=== PATIENT | male | born 1950 | race Two or more races ===

== ENCOUNTER → 2016-09-10 | Outpatient (CLI) | payer OTHER ==
[~2016-09-10] MED LIST: ASPI81TA85 PO; ATOR40TA75 PO; BETA115CR TOP; DIGO0.25 PO; DILT1TAB12 PO; DILT240C3 OR; ELIQ5TAB PO; GLIP5TAB8 PO; GLUC500T OR; LEVA1TAB2 PO; LISI20TA5 OR; LISI40TA OR; LISI40TAB PO; METF500T4 PO; NORV5TAB OR; PRAV40TA OR; TRAM50TA2 PO; TRIC145T19 OR; TYLE650T35 PO; VIAG100T PO
--- NOTE | 2016-09-10 11:25 | REP ---
Prostate sonography: History: PSA. Sonographic findings: Trans rectal prostate sonography demonstrates unremarkable seminal vesicles. Prostate gland is heterogeneously enlarged with calcifications and cystic changes noted. Glandular dimensions are measured at 5.4 x 3.5 x 5.5 cm with a calculated glandular volume of 53.4 ml. Transrectal sonographic guidance provided to Dr. Julian who performed trans rectal ultrasound guided needle biopsy procedure . Signed by Ernesto England MD 09/10/2016 11:17 A
== END ==
LOC: M SMT PRO 09:22
PROVIDERS: ATTEND Urology
DX: R97.20 Elevated prostate specific antigen [PSA] (principal)
CPT/HCPCS: 76872; 76942; G0416

== ENCOUNTER → 2016-09-17 | Outpatient (CLI) | payer OTHER ==
--- NOTE | 2016-09-17 14:37 | REP ---
CHEST, TWO VIEWS: COMPARISON: 12/31/2014 Two views of the chest are performed and demonstrate no evidence of infiltrate or other abnormal parenchymal opacity. The heart is normal in size. There is mild calcification of thoracic aorta. Mediastinal silhouette is unchanged. Left dual-lead pacemaker is again noted. There are mild degenerative changes of the spine. IMPRESSION: No change since prior study of 12/31/2014. No evidence of acute pulmonary disease. Signed by Joe Ramos MD 09/17/2016 08:19 P
[2016-09-17 18:48] LABS: ANION GAP 8 MEQ/L (8-16); BLOOD UREA NITROGEN 23 MG/DL (7-18); CALCIUM LEVEL 9.8 MG/DL (8.8-10.2); CARBON DIOXIDE LEVEL 28 MEQ/L (21-32); CHLORIDE LEVEL 103 MEQ/L (98-107); CREATININE FOR GFR 1.14 MG/DL (0.70-1.30); GLOMERULAR FILTRATION RATE > 60.0 (>49); GLUCOSE, FASTING 176 MG/DL (80-110); SODIUM LEVEL 139 MEQ/L (136-145)
[2016-09-17 18:51] LABS: POTASSIUM SERUM 5.3 MEQ/L (3.5-5.1)
== END ==
LOC: M SMT 13:53
PROVIDERS: ATTEND Urology
DX: C61 Malignant neoplasm of prostate (principal)

== ENCOUNTER → 2016-09-23 | Outpatient (CLI) | payer OTHER ==
[~2016-09-23] MED LIST changes: +ISOVUE-370 76% 100ML VIAL (Q9967) As Ordered ONE
--- NOTE | 2016-09-23 14:44 | REP ---
WHOLE BODY BONE SCAN: Following the intravenous administration of 21.9 mCi of technetium-99m MDP, patient's whole body is imaged in the anterior and posterior projections. Additional oblique images of the thoracic and pelvic regions are performed as well as lateral views of the calvarium, knees, and feet. There is no compelling scintigraphic evidence of osseous metastases. Metallic prosthesis is noted at the right knee. There is arthritic uptake in both feet, medial left knee joint and bilateral shoulders. Renal and bladder activity are seen. IMPRESSION: No compelling scintigraphic evidence of osseous metastases. Signed by Joe Ramos MD 09/23/2016 05:58 P
--- NOTE | 2016-09-24 01:58 | REP ---
Clinical: Prostate cancer . Comparison: 09/17/2016 . Technique: PA and lateral. Findings: The mediastinum and cardiac silhouette are stable. Pacemaker again identified. The lung pickett are clear and without acute consolidation, effusion, or pneumothorax. The skeletal structures are intact and normal. Impression: 1. No acute cardiopulmonary process. Signed by John Mcintyre MD 09/24/2016 01:49 A
--- NOTE | 2016-09-24 03:01 | REP ---
Clinical: Prostate cancer. Technique: Axial contrast enhanced images from the lung bases to the pubic symphysis using 100 ml Isovue 370 intravenous contrast material with precontrast and delayed images of the abdomen as well as coronal and sagittal re-formations. Findings: Lung bases demonstrate mild chronic interstitial changes as well as 3 cm nonspecific density in the medial right middle lobe. Visualized heart and pericardium normal. Liver, pancreas, gallbladder, and right adrenal gland are normal. Spleen demonstrates parenchymal calcifications and subcentimeter cyst suggesting prior granulomas disease. Kidneys demonstrate mild chronic-appearing perinephric stranding, 1 mm nonobstructing left renal calculus and bilateral cysts measuring up to 4 cm in the left kidney and 3.5 cm in the right kidney. 1.1 cm fat containing angiolipoma in the left adrenal gland. The enteric system is without obstruction or acute inflammatory process. Sigmoid diverticulosis noted without acute diverticulitis. Pelvis demonstrates normal bladder prostate gland is mildly heterogeneous and measures approximately 5.4 cm maximal diameter. No pelvic fluid or ascites. No retroperitoneal or intraperitoneal adenopathy. No mass lesion. Atherosclerotic changes of the aorta and vasculature noted without aneurysm. Musculoskeletal structures demonstrate age-related degenerative changes without focal osseous abnormality. Impression: 1. 3 cm soft tissue density in the medial right middle lobe may warrant chest CT for further investigation. 2. Bilateral renal cysts and 1 mm nonobstructing left renal calculus. 3. Sigmoid diverticulosis without acute diverticulitis. 4. Heterogeneous prostate gland measuring 5.4 cm maximal diameter without associated periprostatic adenopathy. 5. No ascites, adenopathy, mass lesion, or acute abdominopelvic pathology appreciated. Signed by John Mcintyre MD 09/24/2016 02:53 A
== END ==
LOC: M RAD 09:48
PROVIDERS: ATTEND Urology
DX: C61 Malignant neoplasm of prostate (principal); R91.8 Other nonspecific abnormal finding of lung field; N28.1 Cyst of kidney, acquired; N20.0 Calculus of kidney; K57.30 Diverticulosis of large intestine without perforation or abscess without bleeding
CPT/HCPCS: 71020; 74178; Q9967

== ENCOUNTER → 2016-10-15 | Outpatient (CLI) | payer OTHER ==
[2016-10-15 12:47] LABS: INR 1.07
[2016-10-15 12:48] LABS: MEAN CORPUSCULAR HEMOGLOBIN 30.9 pg (27.0-33.0); MEAN CORPUSCULAR HGB CONC 34.6 g/dl (32.0-36.5); MEAN CORPUSCULAR VOLUME 89.5 fl (80.0-96.0); RED CELL DISTRIBUTION WIDTH 13.2 % (11.5-14.5); WHITE BLOOD COUNT 8.9 K/mm3 (4.0-10.0)
[2016-10-15 13:05] LABS: ANION GAP 6 MEQ/L (8-16); BLOOD UREA NITROGEN 16 MG/DL (7-18); CALCIUM LEVEL 8.9 MG/DL (8.8-10.2); CARBON DIOXIDE LEVEL 30 MEQ/L (21-32); CHLORIDE LEVEL 107 MEQ/L (98-107); GLOMERULAR FILTRATION RATE > 60.0 (>49); GLUCOSE, FASTING 109 MG/DL (80-110); POTASSIUM SERUM 4.6 MEQ/L (3.5-5.1); SODIUM LEVEL 143 MEQ/L (136-145)
--- NOTE | 2016-10-15 13:37 | REP ---
CT chest with IV contrast: History: Prostate cancer. Comparison chest x-ray September 23, 2016. CT contrast dose: 75 mL of intravenous Isovue [address] findings: A bipolar pacemaker remains in the right heart via the left side. There is no evidence of pleural or pericardial effusion. No hilar or mediastinal mass or adenopathy is observed. There are granulomatous calcifications scattered throughout the spleen. There are granulomatous lymph node residuals in the left hilus and precarinal lymph nodes. No adrenal lesion is seen on either side. There is an intrarenal calculus in the upper pole of the left kidney measuring 3 mm in greatest diameter. There is a low-density area consistent with a cyst in the left mid kidney partially seen at the bottom most slice in the imaging field of view. The visualized upper abdominal structures are otherwise unremarkable. On lung window settings, there is no evidence of pulmonary nodule mass or infiltrate. Bone window settings show no sclerotic or lucent bone destructive lesion. Impression: 1. Pacemaker in place. 2. Calcific granulomatous residuals. 3. Intrarenal nephrolithiasis upper pole left kidney. 4. Probable left mid renal cyst. 5. Otherwise negative contrast enhanced chest CT. Signed by Ernesto England MD 10/15/2016 04:41 P
--- NOTE | 2016-10-16 11:57 | ECGEPIP ---
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
== END ==
LOC: M RAD 10:43
PROVIDERS: ATTEND Urology
DX: C61 Malignant neoplasm of prostate (principal); N20.0 Calculus of kidney
CPT/HCPCS: 36415; 71260; 80048; 85027; 85610; 93005; Q9967

== ENCOUNTER 2016-11-02 07:30 | Inpatient (IN) | payer OTHER, MEDICARE ==
--- NOTE | 2016-10-28 11:28 | HPE ---
DATE OF ADMISSION: 11/02/2016 He is a 66-year-old male patient with [id number] prostate cancer U[place] 8 (3 + 5) with a PSA of 8.26. He would like to undergo surgery. He has had staging with a CT of the abdomen and pelvis, which was negative along with a whole body bone scan also negative. CT of abdomen and pelvis did show a 3 cm lesion in the right lung of unknown etiology and he is scheduled to have a CT of the chest. CURRENT MEDICATIONS: - tramadol HCl 50 mg one tablet as needed every 6 hours - glipizide 5 mg one tablet orally - atorvastatin calcium 40 mg one tablet orally - Eliquis 5 mg one tablet orally - betamethasone valerate 0.801% cream one application to affected area as needed - metformin HCl extended release 500 mg tablet once a day - Viagra 100 mg one tablet as needed once a day - diltiazem HCL 60 one tablet before meals and at bedtime PAST MEDICAL HISTORY: Diabetes. Elevated cholesterol. Hypertension. Prostate cancer. PAST SURGICAL HISTORY: Pacemaker. Total knee replacement of the right knee. Hernia repair. Chest biopsy. SOCIAL HISTORY: He is a smoker. ALLERGIES: No known drug allergies. REVIEW OF SYSTEMS: We have reviewed the 12 review of systems and there is no other symptomatology other than the history of present illness. Vital signs: Weight 265 pounds, height 71 inches. Vital signs otherwise stable. Physical exam: Alert, oriented times three. Skin is clear. HEENT: Unremarkable. Lungs: Clear to auscultate, respirations easy. Heart: Regular rate and rhythm. No murmurs. Abdomen is soft, nondistended. Positive bowel signs. Extremities: No swelling, no edema. ASSESSMENT: Prostate cancer. 66-year-old male patient with a [place] score of 8 and a PSA of 8.26. He would like to undergo a robotic-assisted radical prostatectomy plus bilateral pelvic lymph node dissections. We have explained to him about the different complications related to the surgery which are not limited to the following: Pain, infection, sepsis, bowel injury, rectal injury, bladder injury, rectoceles, hematuria, blood loss, incontinence and impotence. The patient is aware of this and has signed consent. We will order a CT of the chest with IV contrast to rule out a secondary malignancy. He will also need a medical clearance and preop lab work has been ordered.
[~2016-11-02] VITALS: Ht 175.3 cm; Wt 120.2 kg
[~2016-11-02 07:30] MED LIST changes: -ASPI81TA85 PO; -DIGO0.25 PO; -ISOVUE-370 76% 100ML VIAL (Q9967) As Ordered ONE; -LEVA1TAB2 PO; -LISI40TAB PO; -TYLE650T35 PO
[2016-11-02] MEDS ORDERED: LR 1,000 ML IV ONE (09:15)
[2016-11-02] MEDS ORDERED: ASPI81TA85 PO (10:09)
[2016-11-02] MEDS ORDERED: DIGO0.25 PO (10:09)
[2016-11-02] MEDS ORDERED: LISI40TAB PO (10:09)
[2016-11-02] MEDS ORDERED: HYDROmorphone HCL 2 MG/ML 1ML VIAL (J1170) As Ordered ONE (13:40)
[2016-11-02] MEDS ORDERED: dexameTHASONE 4 MG/ML 1ML VIAL (J1100) As Ordered ONE (13:40)
[2016-11-02] MEDS ORDERED: fentaNYL 100 MCG/2 ML INJECTION (J3010) As Ordered ONE (13:40)
[2016-11-02] MEDS ORDERED: ONDANSETRON 4MG/2ML VIAL (J2405) As Ordered ONE (13:41)
[2016-11-02] MEDS ORDERED: LIDOCAINE 2% INJ 100 MG/5 ML SDV (FOR ANES.) As Ordered ONE (13:41)
[2016-11-02] MEDS ORDERED: MIDAZOLAM INJ 2 MG/2 ML VIAL (J2250) As Ordered ONE (13:41)
[2016-11-02] MEDS ORDERED: ROCURONIUM BROMIDE 50 MG/5 ML VIAL/SYRINGE As Ordered ONE ×2 (13:41→14:31)
[2016-11-02] MEDS ORDERED: PROPOFOL 200 MG/20 ML VIAL As Ordered ONE (13:41)
[2016-11-02] MEDS ORDERED: PHENYLephrine HCL 500 MCG/5 ML (100MCG/ML) SYRINGE (J2370) As Ordered ONE (14:08)
[2016-11-02] MEDS ORDERED: NEOSTIGMINE 1MG/ML 5 ML SYRINGE (J2710) As Ordered ONE (14:10)
[2016-11-02] MEDS ORDERED: GLYCOPYRROLATE INJ 0.2 MG/ML 2 ML VIAL As Ordered ONE (14:10)
[2016-11-02] MEDS ORDERED: MORPHINE 2 MG/ML 1ML SYRINGE IV PRN (17:45)
[2016-11-02] MEDS ORDERED: oxyCODONE 5MG TAB PO PRN (17:45)
[2016-11-02] MEDS ORDERED: METOCLOPRAMIDE INJ 10MG/2ML VIAL (J2765) IV PRN (17:45)
[2016-11-02] MEDS ORDERED: PERCOCET 5MG/325MG TAB PO PRN (17:45)
[2016-11-02] MEDS ORDERED: MORPHINE 4 MG/ML 1ML SYRINGE IV PRN (17:45)
[2016-11-02] MEDS ORDERED: ONDANSETRON 4MG/2ML VIAL (J2405) IV PRN ×2 (17:45)
[2016-11-02] MEDS ORDERED: fentaNYL 100 MCG/2 ML INJECTION (J3010) IV PRN (17:45)
[2016-11-02] MEDS ORDERED: LR 1,000 ML IV SCH (17:45)
[2016-11-02 17:53] LABS: MEAN CORPUSCULAR HEMOGLOBIN 31.6 pg (27.0-33.0); MEAN CORPUSCULAR HGB CONC 34.6 g/dl (32.0-36.5); MEAN CORPUSCULAR VOLUME 91.2 fl (80.0-96.0); RED CELL DISTRIBUTION WIDTH 13.2 % (11.5-14.5); WHITE BLOOD COUNT 15.1 K/mm3 (4.0-10.0)
[2016-11-02 18:10] LABS: ANION GAP 6 MEQ/L (8-16); BLOOD UREA NITROGEN 17 MG/DL (7-18); CALCIUM LEVEL 8.7 MG/DL (8.8-10.2); CARBON DIOXIDE LEVEL 29 MEQ/L (21-32); CHLORIDE LEVEL 107 MEQ/L (98-107); CREATININE FOR GFR 1.22 MG/DL (0.70-1.30); GLOMERULAR FILTRATION RATE > 60.0 (>49); GLUCOSE, FASTING 219 MG/DL (80-110); POTASSIUM SERUM 4.9 MEQ/L (3.5-5.1); SODIUM LEVEL 142 MEQ/L (136-145)
[2016-11-02] MEDS: KCL 20MEQ IN D5/0.45NS 1000ML 1,000 ML IV SCH (19:15)
[2016-11-02] MEDS: CIPROFLOXACIN 500 MG TAB PO SCH (19:16)
[2016-11-02] MEDS: KETOROLAC 30 MG/ML VIAL (J1885) IV SCH (19:16)
[2016-11-02 19:30] VITALS: BP 140/60
[2016-11-02 20:00] VITALS: BP 158/62
[2016-11-02] MEDS ORDERED: PANTOPRAZOLE 40MG INJ (PROTONIX) (C9113) IV SCH (20:00)
[2016-11-02] MEDS: SIMETHICONE 80 MG CHEW TAB PO SCH (20:23)
[2016-11-02 21:00] VITALS: BP 144/54
[2016-11-02 22:00] VITALS: BP 128/80
[2016-11-02 23:00] VITALS: BP 130/78
[2016-11-02] MEDS: ACETAMINOPHEN 650MG ER TAB (TYLENOL ARTHRITIS) PO SCH (23:10)
[2016-11-03] MEDS: KCL 20MEQ IN D5/0.45NS 1000ML 1,000 ML IV SCH (02:46)
[2016-11-03] MEDS: KETOROLAC 30 MG/ML VIAL (J1885) IV SCH ×2 (02:47→09:31)
[2016-11-03 03:00] VITALS: BP 142/58
[2016-11-03 06:00] VITALS: BP 138/72
[2016-11-03] MEDS: ACETAMINOPHEN 650MG ER TAB (TYLENOL ARTHRITIS) PO SCH ×2 (06:25→15:29)
[2016-11-03] MEDS: CIPROFLOXACIN 500 MG TAB PO SCH ×2 (06:25→17:52)
[2016-11-03 07:18] LABS: MEAN CORPUSCULAR HEMOGLOBIN 30.6 pg (27.0-33.0); MEAN CORPUSCULAR HGB CONC 33.5 g/dl (32.0-36.5); MEAN CORPUSCULAR VOLUME 91.1 fl (80.0-96.0); RED CELL DISTRIBUTION WIDTH 13.1 % (11.5-14.5); WHITE BLOOD COUNT 14.1 K/mm3 (4.0-10.0)
[2016-11-03 07:42] LABS: ANION GAP 12 MEQ/L (8-16); BLOOD UREA NITROGEN 21 MG/DL (7-18); CALCIUM LEVEL 8.1 MG/DL (8.8-10.2); CARBON DIOXIDE LEVEL 24 MEQ/L (21-32); CHLORIDE LEVEL 105 MEQ/L (98-107); GLOMERULAR FILTRATION RATE > 60.0 (>49); GLUCOSE, FASTING 228 MG/DL (80-110); SODIUM LEVEL 141 MEQ/L (136-145)
[2016-11-03 07:44] LABS: POTASSIUM SERUM 5.3 MEQ/L (3.5-5.1)
[2016-11-03] MEDS ORDERED: metFORMIN XR 500MG TAB *GLUCOPHAGE XR PO SCH (09:00)
[2016-11-03] MEDS ORDERED: DIGOXIN 0.25 MG TAB PO SCH (09:00)
[2016-11-03] MEDS: SIMETHICONE 80 MG CHEW TAB PO SCH ×2 (09:31→15:29)
[2016-11-03 10:00] VITALS: BP 144/66
--- NOTE | 2016-11-03 10:12 | RO ---
DATE OF PROCEDURE: 11/02/2016 PREOPERATIVE DIAGNOSIS: Prostate cancer. POSTOPERATIVE DIAGNOSIS: Prostate cancer. SURGERY PERFORMED: Robotic assisted radical prostatectomy plus bilateral pelvic lymph node dissection. SURGEON: Aleixs Julian MD DIRECTOR OF [employer]: HEATHER Cruz ANESTHESIA: General. COMPLICATIONS: None. ESTIMATED BLOOD LOSS: 100 mL. HISTORY OF PRESENT ILLNESS: 66-year-old male patient with a clinical stage [id number] prostate cancer, [place] 8. The patient has consented for a robotic assisted radical prostatectomy plus bilateral pelvic lymph node dissection. DESCRIPTION OF PROCEDURE: With the patient under general anesthesia in supine modified low lithotomy position, after prepping and draping the area of concern which included the entire genitalia and abdomen, we started by introducing a #16 Palau[place] Bhatia catheter and inflated the balloon to 10 mL. He had an orogastric tube also placed. We then proceeded to place the patient in a steep Trendelenburg position and did an incision in the midline infraumbilically for about 2 cm. Through this incision we opened the Retzius space and placed a balloon space maker. We dilated the Retzius space and then placed a balloon trocar and inflated the balloon trocar to 40 mL. We then proceeded to insufflate the Retzius space with a maximum pressure of 12 at high flow. Under direct vision with a handheld robotic camera, we placed the other trocars in a fan shaped manner, two 8 mm metallic trocars on the right side by each by 8 cm, and two other trocars on he left side, one 12 mm VersaStep in the midclavicular line and anterior clavicular line in a fan shaped manner, an 8 mm metallic trocar. We then proceeded to dock the robot. On the left arm we used monopolar scissors, on the right arm we used bipolar PK and a ProGrasp. We then proceeded to actively dissect the periprostatic fat and uncover the prostate from the periprostatic fat. We then opened the endopelvic fascia bilaterally from base to apex, cut the puboprostatic ligaments and ligated the dorsal vein complex with a CT-1 needle and #0 Vicryl times two. We then proceeded to open the anterior bladder neck with monopolar scissors, deflated the balloon and grabbed the Bhatia catheter and pulling into traction with the third arm, pulling the prostate into traction and the bladder neck into traction. We then cut the posterior bladder neck and the posterior detrusor muscle and dissected vas deferens, cut both vas deferens, dissected the seminal vesicles and ligated the seminal vesicle arteries. We then proceeded to cut the posterior Denonvilliers fascia with monopolar scissors from base to apex, the rectum from base to apex of the prostate. We then ligated the prostatic pedicles with extra large Hem-o-Loks times three on the left side, times four on the left side and on the right side and then dissecting with monopolar scissors the prostate away from the rectum from base to apex. Once the prostate was attached to the dorsal vein complex on the urethra, we actively cut the dorsal vein complex and then cut the urethra and placed the prostate into a 10 mm Endo Catch bag. We then proceeded to repair the posterior Denonvilliers fascia with a V-Loc #3-0 in a running fashion and then proceeded to actively do our urethral vesical anastomosis with a Quill stitch #2-0 barbed suture absorbable starting at the bladder neck, outside in and inside out in the urethra running it across 360 degrees. Prior to this, we closed the bladder with #2-0 Monocryl stitches on the right and the left of the bladder neck to actively reduce the size of the bladder neck. We then proceeded to actively pass a #20 Palauan Bhatia catheter into the bladder and inflated the balloon to 20 mL and tied our knots of the Quill stitch. We then proceeded to do our pelvic lymph node dissections on the left and the right side. The limits of dissection were inferiorly the lacunar ligament medially, the bladder posteriorly, the sidewall superiorly, the bifurcation of the hypogastric vessels laterally, the external iliac arteries. We took out the obturator lymph nodes. We took out the obturator lymph nodes, hypogastric lymph nodes and external iliac artery lymph nodes. We sent them as separate specimens in a 10 mm Endo Catch bag, left pelvic lymph node dissection and right pelvic lymph node dissection. We ligated the lymphatics with Hem-o-Loks and bipolar PK. We then proceeded to undock the thirst arm and placed a 15 round ERIK drain into the pelvis and placed it to bulb suction. We then undocked the robot, took all the instruments out and took the optic out and took all the trocars out, and took all the specimens through the midline incision. Left pelvic lymph node dissection and right pelvic lymph node dissection and prostate and seminal vesicles were sent in separate specimen containers for permanent pathology analysis. We then closed the anter rectus fascia of the rectus muscle with a #2-0 UR6 in running fashion Vicryl and then closed the skin with #4-0 Monocryl subcuticular stitches. We placed Mastisol, Steri-Strips, Telfa and Tegaderm. We suture ligated the ERIK drain with nylon #3-0. PLAN: The patient will be in the hospital for one day. Once he is tolerating a regular diet and pain is under control, he will be discharged home with followup at [facility] for a voiding trial. There were no complications during surgery. Estimated blood loss was 100 mL.
[2016-11-03] MEDS: glipiZIDE (GLUCOTROL) 5 MG TAB PO SCH ×2 (10:23→17:52)
[2016-11-03 14:00] VITALS: BP 149/62
[2016-11-03] MEDS ORDERED: TYLE650T35 PO (17:12)
[2016-11-03] MEDS ORDERED: LEVA1TAB2 PO (17:12)
--- NOTE | 2016-11-03 20:49 | DSES ---
DATE OF ADMISSION: 11/02/2016 DATE OF DISCHARGE: 11/03/2016 ADMISSION DIAGNOSIS: Prostate cancer. DISCHARGE DIAGNOSIS: Prostate cancer. SURGERY PERFORMED: Robotic-assisted radical prostatectomy plus bilateral pelvic lymph node dissection. ADMITTING SURGEON: Alexis Julian MD DISCHARGE SURGEON: Alexis Julian MD HISTORY OF PRESENT ILLNESS: 66-year-old male patient with clinical stage [id number] prostate cancer, Uz[place] 8. The patient has consented for a robotic-assisted radical prostatectomy plus bilateral pelvic lymph node dissection. He has morbid obesity, and he has consented for the procedure. For this reason, on 11/02/2016, we performed the procedure. After this, he was admitted to the hospital. HOSPITALIZATION COURSE: The patient did very well. By postoperative day #1, he was tolerating regular diet, he was passing gas, pain was stable with oral pain medication, Bhatia catheter was running clear urine, the Ricardo-Juarez (ERIK) output was only 40 mL per shift. For this reason, we discontinued the ERIK and he will go home with the following indications: Hbatia catheter to gravity, regular diet, no blood thinners, no heavy weightlifting above 20 pounds, may shower in 3 days, no sit bath. He is to take Levaquin 500 mg one tablet by mouth daily for 10 days. Followup at [facility] in 10 days for a voiding trial. He will take also Tylenol as needed for pain. He cannot start his blood thinners for 2 weeks. There were no complications during surgery. Edited: [facility] 11/04/2016 0249
[2016-11-03] MEDS ORDERED: LISINOPRIL 40 MG TAB PO SCH (21:00)
== END 2016-11-03 18:20 | disposition home or self-care (01) | DRG 708 ==
LOC: M OR 09:01 → M MS5PR 18:23
PROVIDERS: ADMIT Urology; ATTEND Urology
PROC: 07BC4ZX Excision of Pelvis Lymphatic, Percutaneous Endoscopic Approach, Diagnostic (ICD-10-PCS; 2016-11-02)
PROC: 8E0W4CZ Robotic Assisted Procedure of Trunk Region, Percutaneous Endoscopic Approach (ICD-10-PCS; 2016-11-02)
PROC: 0VT04ZZ Resection of Prostate, Percutaneous Endoscopic Approach (ICD-10-PCS; principal; 2016-11-02 11:40)
DX: C61 Malignant neoplasm of prostate (principal); E11.21 Type 2 diabetes mellitus with diabetic nephropathy; E78.00 Pure hypercholesterolemia, unspecified; I10 Essential (primary) hypertension; I48.2 Chronic atrial fibrillation; G47.33 Obstructive sleep apnea (adult) (pediatric); E66.09 Other obesity due to excess calories; Z95.0 Presence of cardiac pacemaker; Z96.651 Presence of right artificial knee joint; Z87.891 Personal history of nicotine dependence; Z79.01 Long term (current) use of anticoagulants; Z79.899 Other long term (current) drug therapy; Z68.37 Body mass index [BMI] 37.0-37.9, adult; Z79.84 Long term (current) use of oral hypoglycemic drugs

== ENCOUNTER → 2016-12-17 | Outpatient (CLI) | payer OTHER, MEDICARE ==
[~2016-12-17] MED LIST changes: +ASPI81TA85 PO; +DIGO0.25 PO; +LEVA1TAB2 PO; +LISI40TAB PO; +TYLE650T35 PO
== END ==
LOC: M SMT 08:30
PROVIDERS: ATTEND Nurse Practitioner Women's Health
DX: C61 Malignant neoplasm of prostate (principal)

== ENCOUNTER → 2017-03-24 | Outpatient (CLI) | payer OTHER ==
[2017-03-24 14:06] LABS: PROSTATIC SPECIFIC AG MONITOR < 0.01 NG/ML (< 4.0)
== END ==
LOC: M SMT 10:11
DX: C61 Malignant neoplasm of prostate (principal)
CPT/HCPCS: 84153

== ENCOUNTER → 2017-03-30 | Outpatient (REF) | payer OTHER ==
[2017-03-30 13:45] LABS: APPEARANCE, URINE CLEAR (CLEAR); BACTERIA, URINE AUTO NEGATIVE (NEGATIVE); BILIRUBIN, URINE AUTO NEGATIVE (NEGATIVE); BLOOD, URINE BLOOD NEGATIVE (NEGATIVE); COLOR, URINE YELLOW (YELLOW); GLUCOSE, URINE (UA) AUTO NEGATIVE (NEGATIVE); KETONE, URINE AUTO NEGATIVE (NEGATIVE); LEUKOCYTE ESTERASE, URINE AUTO NEGATIVE (NEGATIVE); MUCUS, URINE SMALL (NEGATIVE); NITRITE, URINE AUTO NEGATIVE (NEGATIVE); PROTEIN, URINE AUTO 2+ mg/dL (NEGATIVE); RBC, URINE AUTO 0 /HPF (0-3); SPECIFIC GRAVITY URINE AUTO 1.017 (1.002-1.035); SQUAMOUS EPITHELIAL CELL UR AU 0 /HPF (0-6); UROBILINOGEN, URINE AUTO 0.2 mg/dL (0.0-2.0); WBC, URINE AUTO 0 /HPF (0-3)
== END ==
LOC: M SMT 13:13
DX: Z85.46 Personal history of malignant neoplasm of prostate (principal)

== ENCOUNTER → 2017-07-04 | Outpatient (CLI) | payer OTHER ==
[2017-07-04 14:26] LABS: PROSTATIC SPECIFIC AG MONITOR < 0.01 NG/ML (< 4.0)
== END ==
LOC: M SMT 10:36
DX: Z85.46 Personal history of malignant neoplasm of prostate (principal)
CPT/HCPCS: 84153

== ENCOUNTER → 2017-10-06 | Outpatient (CLI) | payer OTHER ==
[2017-10-06 15:34] LABS: PROSTATIC SPECIFIC AG MONITOR < 0.01 NG/ML (< 4.0)
== END ==
LOC: M SMT 09:29
DX: C61 Malignant neoplasm of prostate (principal)
CPT/HCPCS: 84153

== ENCOUNTER → 2018-01-05 | Outpatient (CLI) | payer OTHER ==
[2018-01-05 18:21] LABS: PROSTATIC SPECIFIC AG MONITOR < 0.0 NG/ML (< 4.0)
== END ==
LOC: M SMT 11:14
DX: Z85.46 Personal history of malignant neoplasm of prostate (principal)
CPT/HCPCS: 84153

== ENCOUNTER 2018-01-11 11:27 | Day surgery (SDC) | payer OTHER ==
[2018-01-11] MEDS: NS 1,000 ML IV (11:45)
[2018-01-11] MEDS ORDERED: PROPOFOL 200 MG/20 ML VIAL As Ordered ×2 (11:53→12:20)
[2018-01-11] MEDS ORDERED: LIDOCAINE 2% INJ 100 MG/5 ML SDV (FOR ANES.) As Ordered (12:16)
== END 2018-01-11 13:35 | disposition home or self-care (01) ==
LOC: M OPP 11:27
DX: Z86.010 Personal history of colon polyps (principal); K64.0 First degree hemorrhoids; K57.30 Diverticulosis of large intestine without perforation or abscess without bleeding; D12.2 Benign neoplasm of ascending colon
CPT/HCPCS: 45385

== ENCOUNTER → 2018-04-04 | Outpatient (CLI) | payer OTHER ==
[~2018-04-04] MED LIST changes: +ATEN25TA PO; +LISI40TA PO; -LISI40TAB PO
== END ==
LOC: M SMT 10:36
PROVIDERS: ATTEND Nurse Practitioner Women's Health
DX: Z85.46 Personal history of malignant neoplasm of prostate (principal)

== ENCOUNTER → 2019-03-14 | Outpatient (REF) | payer OTHER ==
[~2019-03-14] MED LIST changes: +DIGO0.253 PO; +METF-791 PO; -METF500T4 PO
== END ==
LOC: M LAB REF 17:40
PROVIDERS: ATTEND Nurse Practitioner Adult Health
DX: M10.071 Idiopathic gout, right ankle and foot (principal)

== ENCOUNTER → 2019-10-18 | Outpatient (CLI) | payer OTHER ==
[~2019-10-18] MED LIST changes: +ACET650T61 PO; -ASPI81TA85 PO; +ASPI81TA86 PO; -METF-791 PO; +METF-838 PO; -TYLE650T35 PO
[2019-10-20 08:09] LABS: PSA TOTAL <0.1 ng/mL (0.0-4.0)
== END ==
LOC: M PLALAB 11:17
PROVIDERS: ATTEND Nurse Practitioner Family
DX: R97.20 Elevated prostate specific antigen [PSA] (principal)

== ENCOUNTER → 2019-10-18 | Outpatient (CLI) | payer OTHER ==
[~2019-10-18] MED LIST changes: +ISOVUE-370 76% 100ML VIAL As Ordered ONE
--- NOTE | 2019-10-25 17:34 | REP ---
CT OF THE ABDOMEN AND PELVIS WITHOUT AND WITH IV CONTRAST, MULTIPHASE IMAGING AFTER IV CONTRAST, CT UROGRAM INDICATION: Studies performed for hematuria. COMPARISON: 09/23/2016. HISTORY: Patient has a history of prostate carcinoma. FINDINGS: The visualized lower lung pickett are unremarkable. The hepatic parenchyma is homogeneous on all phases of the study. There are tiny gallbladder calculi along the dependent wall. The gallbladder is otherwise unremarkable. The pancreas is unremarkable. There are small splenic calcified granulomas, these are unchanged. The spleen is otherwise unremarkable. The adrenals are unremarkable. There is a right renal lower pole, sharply circumscribed cyst without calcification or septation measuring 4.2 cm in diameter, not significantly changed. This is a Bosniak type 1 cyst. There is a left renal cortical cyst that is sharply marginated without calcification or septation, measuring 4.2 cm in diameter. This is not significantly changed. This is a Bosniac type I cyst. There is a small hyperdensity at the mid-pole laterally in the right renal cortex on the unenhanced images, measuring up to 7 mm, not significantly changed. This is likely a tiny hyperdense cyst. There are small calcifications in the left renal hilus, likely vascular atheroma. There is a tiny, nonobstructive, left renal calculus measuring 3 mm in an upper pole calyx, unchanged. There are no solid renal masses. There is no hydronephrosis. On the CT urogram, the ureters are adequately demonstrated. There is no hydroureter. There are no filling defects. On the coronal images, there is a tiny soft tissue defect in the dome of the bladder measuring 9 mm in an upper pole , possibly a bladder wall polyp that can be seen posterolaterally in the bladder on the axial image 126 of series 401. On the comparison study, the prostate was enlarged. The prostate is not visualized on the current study. There are tiny densities posterolateral to the bladder base bilaterally, possibly surgical clips. There is no pelvic or retroperitoneal adenopathy. There are no lytic, blastic, or destructive skeletal changes. IMPRESSION: There are bilateral Bosniak type 1 renal cysts. Hyperdense cyst in the right kidney. There are bilateral renal calculi, as described.. There is no hydronephrosis or perinephric stranding. There is no hydroureter. There is a probable 9 mm polyp in the bladder dome. Previously, the prostate was enlarged. No prostatic tissue is identified on the current study. There are tiny densities at the lateral margins of the prostate bed, possibly surgical clips. There is no abdominal, retroperitoneal, or pelvic adenopathy. There are no lytic, blastic, or destructive skeletal changes. MTDD
== END ==
LOC: M RAD 09:45
PROVIDERS: ATTEND Internal Medicine Nephrology
DX: R31.9 Hematuria, unspecified (principal); N20.0 Calculus of kidney; N28.1 Cyst of kidney, acquired
CPT/HCPCS: 74178; Q9967

== ENCOUNTER → 2019-10-24 | Outpatient (REF) | payer OTHER ==
[~2019-10-24] MED LIST changes: -ISOVUE-370 76% 100ML VIAL As Ordered ONE
[2019-10-24 13:59] LABS: APPEARANCE, URINE HAZY (CLEAR); BACTERIA, URINE AUTO NEGATIVE (NEGATIVE); BILIRUBIN, URINE AUTO NEGATIVE (NEGATIVE); BLOOD, URINE BLOOD 3+ (NEGATIVE); COLOR, URINE YELLOW (YELLOW); GLUCOSE, URINE (UA) AUTO NEGATIVE (NEGATIVE); KETONE, URINE AUTO NEGATIVE (NEGATIVE); LEUKOCYTE ESTERASE, URINE AUTO NEGATIVE (NEGATIVE); NITRITE, URINE AUTO NEGATIVE (NEGATIVE); PROTEIN, URINE AUTO 2+ mg/dL (NEGATIVE); RBC, URINE AUTO TNTC /HPF (0-3); SPECIFIC GRAVITY URINE AUTO 1.012 (1.002-1.035); SQUAMOUS EPITHELIAL CELL UR AU 0 /HPF (0-6); UROBILINOGEN, URINE AUTO 0.2 mg/dL (0.0-2.0); WBC, URINE AUTO 5 /HPF (0-3)
== END ==
LOC: M LAB REF 12:51
PROVIDERS: ATTEND Nurse Practitioner Women's Health
DX: R30.0 Dysuria (principal)

== ENCOUNTER → 2020-05-14 | Outpatient (REF) | payer OTHER ==
[~2020-05-14] MED LIST changes: -LISI40TA PO; +LISI40TA4 PO
== END ==
LOC: M LAB REF 16:15
PROVIDERS: ATTEND Nurse Practitioner Adult Health
DX: R31.9 Hematuria, unspecified (principal)

== ENCOUNTER → 2020-05-19 | Outpatient (REF) | payer OTHER ==
[2020-05-19 14:09] LABS: APPEARANCE, URINE CLEAR (CLEAR); BACTERIA, URINE AUTO NEGATIVE (NEGATIVE); BILIRUBIN, URINE AUTO NEGATIVE (NEGATIVE); BLOOD, URINE BLOOD 3+ (NEGATIVE); COLOR, URINE STRAW (YELLOW); GLUCOSE, URINE (UA) AUTO NEGATIVE (NEGATIVE); KETONE, URINE AUTO NEGATIVE (NEGATIVE); LEUKOCYTE ESTERASE, URINE AUTO NEGATIVE (NEGATIVE); MUCUS, URINE SMALL (NEGATIVE); NITRITE, URINE AUTO NEGATIVE (NEGATIVE); PROTEIN, URINE AUTO 1+ mg/dL (NEGATIVE); RBC, URINE AUTO 29 /HPF (0-3); SPECIFIC GRAVITY URINE AUTO 1.006 (1.002-1.035); SQUAMOUS EPITHELIAL CELL UR AU 0 /HPF (0-6); UROBILINOGEN, URINE AUTO 0.2 mg/dL (0.0-2.0); WBC, URINE AUTO 2 /HPF (0-3)
== END ==
LOC: M SMT 13:42
PROVIDERS: ATTEND Nurse Practitioner Women's Health
DX: R31.0 Gross hematuria (principal)

== ENCOUNTER → 2020-06-13 | Outpatient (REF) | payer OTHER | LOC: M SMT 15:09 | PROVIDERS: ATTEND Urology | DX: N32.89 Other specified disorders of bladder (principal) ==

== ENCOUNTER 2020-06-30 13:30 | Day surgery (SDC) | payer OTHER ==
[~2020-06-30] VITALS: Ht 177.8 cm; Wt 111.1 kg
[~2020-06-30 13:30] MED LIST changes: +AMLO1TAB24 PO; +ECOT81TA5 PO; +FURO40TA2 PO; +GLIP10TA PO; +ceFAZolin SOD 2 GM in IV 1 EA IV ONE
[2020-06-30] MEDS ORDERED: HumaLOG INSULIN (NovoLOG) PER UNIT SC ONE (14:50)
[2020-06-30] MEDS ORDERED: LR 1,000 ML IV ONE (14:50)
[2020-06-30] MEDS ORDERED: dexameTHASONE 4 MG/ML 1ML VIAL (J1100 PER 1MG) As Ordered ONE (15:11)
[2020-06-30] MEDS ORDERED: ONDANSETRON 4MG/2ML VIAL As Ordered ONE (15:11)
[2020-06-30] MEDS ORDERED: propofoL 200 MG/20 ML VIAL As Ordered ONE (15:11)
[2020-06-30] MEDS ORDERED: fentaNYL 100 MCG/2 ML INJECTION (J3010) As Ordered ONE ×2 (15:11→15:42)
[2020-06-30] MEDS ORDERED: ROCURONIUM BROMIDE 50 MG/5 ML VIAL As Ordered ONE ×2 (15:11→16:59)
[2020-06-30] MEDS ORDERED: MIDAZOLAM INJ 2MG/2ML VIAL (J2250 PER 1MG) As Ordered ONE (15:11)
[2020-06-30] MEDS ORDERED: LIDOCAINE 2% 100MG/5ML SDV (FOR ANES.) As Ordered ONE (15:11)
[2020-06-30] MEDS ORDERED: SUGAMMADEX SODIUM 500 MG/5 ML VIAL (BRIDION) As Ordered ONE (15:14)
[2020-06-30] MEDS ORDERED: ACETAMINOPHEN 1000MG 100ML IV BTL (OFIRMEV) (J0131 PER 10MG) As Ordered ONE (15:19)
[2020-06-30] MEDS ORDERED: CONRAY-60 60% 50ML VIAL (Q9961) As Ordered ONE (15:47)
[2020-06-30] MEDS ORDERED: oxyBUTYnin 5 MG TAB PO STA (17:00)
--- NOTE | 2020-06-30 17:04 | RO ---
OPERATIVE NOTE DATE OF OPERATION: 06/30/2020 PREOPERATIVE DIAGNOSIS: Bladder tumors. POSTOPERATIVE DIAGNOSIS: Bladder tumors. PROCEDURE: Cystoscopy, transurethral resection of bladder tumors (greater than 5 cm), examination under anesthesia. SURGEON: Sandro Brennan MD MANAGER SOLUTION: None. ANESTHESIA: General. OPERATIVE INDICATIONS: This is a 70-year-old male with a history of prostate cancer, status post radical prostatectomy several years ago. On recent office cystoscopy, he was found to have several tumors throughout his bladder. He is brought to the operating room today for treatment. DESCRIPTION OF PROCEDURE: The patient was brought to the operating room and general anesthesia was induced. Prophylactic antibiotics were infused. He was placed in a dorsal lithotomy position. At this point he had digital rectal exam under anesthesia performed. It was negative for palpable bladder masses. The bladder was freely mobile. At this point, the patient was prepped and draped in the usual sterile fashion. A resectoscope was inserted in the urethral meatus and advanced into the bladder using a visual obturator. The bladder was thoroughly examined. The patient had several papillary tumors throughout his bladder. All these tumors were resected using a bipolar loop. Of note, I did not have to resect on top of either ureteral orifice. The base of resection in each area was cauterized using the coagulation current. There was good hemostasis. All the tumors were removed from the bladder using a Urovac evacuator. Once satisfied all the tumors had been removed, I then examined the ureteral orifices again and they both continued to efflux clear yellow urine. At this point, the resectoscope was removed and an 18 Slovenian Bhatia catheter was inserted into the bladder. The balloon was filled with 10 mL of sterile water and then the catheter was connected to gravity drainage. This marked the conclusion of the procedure. The patient was then taken out of the dorsal lithotomy position, awakened from anesthesia and transported to the recovery room in stable condition. ESTIMATED BLOOD LOSS: 5 mL COMPLICATIONS: None. SPECIMENS: Bladder tumors. PLAN: The patient will follow up in urology clinic in approximately one week for catheter removal and to discuss pathology results. Depending on the results, the patient may require further treatment. ANNE MARIE
[2020-06-30] MEDS ORDERED: PERCOCET 5MG/325MG TAB PO PRN (17:30)
[2020-06-30] MEDS ORDERED: METOCLOPRAMIDE INJ 10MG/2ML VIAL (J2765 PER 1) IV PRN (17:30)
[2020-06-30] MEDS ORDERED: ONDANSETRON 4MG/2ML VIAL IV PRN (17:30)
[2020-06-30] MEDS ORDERED: fentaNYL 100 MCG/2 ML INJECTION (J3010) IV PRN (17:30)
[2020-06-30] MEDS ORDERED: LR 1,000 ML IV SCH (17:30)
[2020-06-30] MEDS ORDERED: ACETAMINOPHEN TAB 650MG DOSE (2X325MG) PO PRN (17:35)
[2020-06-30 20:23] VITALS: BP 144/78
[2020-06-30] MEDS ORDERED: DEXTROSE 50% 50 ML SYRINGE IV PRN (20:55)
[2020-06-30] MEDS ORDERED: GLUCAGON INJ 1MG VIAL SC PRN (20:55)
[2020-06-30] MEDS ORDERED: oxyBUTYnin 5 MG TAB PO PRN (20:55)
[2020-06-30] MEDS ORDERED: GLUCOSE 4GM CHEW TABLET PO PRN (20:55)
[2020-06-30] MEDS ORDERED: ASPIRIN 81 MG CHEW TABLET PO SCH (21:00)
[2020-06-30] MEDS ORDERED: amLODIPine 5 MG TAB PO SCH (21:00)
[2020-06-30] MEDS ORDERED: HumaLOG INSULIN (NovoLOG) PER UNIT SC SCH (21:00)
[2020-06-30] MEDS ORDERED: ATORVASTATIN 20 MG TAB PO SCH (21:00)
[2020-06-30] MEDS ORDERED: atenoloL 25 MG TAB PO SCH (21:00)
[2020-06-30] MEDS ORDERED: DIGOXIN 0.25 MG TAB PO SCH (21:00)
[2020-06-30 22:51] VITALS: BP 144/78
[2020-07-01 05:43] VITALS: BP 129/57
[2020-07-01] MEDS ORDERED: HumaLOG INSULIN (NovoLOG) PER UNIT SC SCH (07:30)
--- NOTE | 2020-07-01 07:40 | IPNPDOC ---
Subjective Review oF Systems Chief Complaint The patient is a 70-year-old male admitted with a reason for visit of Bladder Tumor. Events since Last Encounter No acute events o/n. Patient denies pain. He just has the constant feeling that he has to have a BM. Denies n/v. No chest pain or SOB. No f/c/ns. Objective Physical Examination General Exam: Alert, Cooperative, No Acute Distress Chest Exam: Normal air movement ABDOMEN EXAM: Soft Skin Exam: Nl turgor and temperature Neuro Exam: Normal Speech Psych Exam: Mental status NL, Mood NL Other physical findings catheter draining dark pink urine Vital Signs/I&O Vital Signs Date Time Temp Pulse Resp B/P (MAP) Pulse Ox O2 Delivery O2 Flow Rate FiO2 07/01/20 05:43 97.5 71 18 129/57 (81) 92 Room Air 06/30/20 20:23 2.0 I&O- Last 24 Hours up to 6 AM 07/01/20 06:00 Intake Total 1900 ml Output Total 155 ml Balance 1745 ml Laboratory Data Labs 24H Laboratory Tests 2 06/30/20 14:12: Bedside Glucose (Misc Panel) 182H 06/30/20 22:31: Bedside Glucose (Misc Panel) 369H 07/01/20 05:46: Bedside Glucose (Misc Panel) 286H FSBS Laboratory Tests Test 06/30/20 14:12 06/30/20 22:31 07/01/20 05:46 Range/Units Bedside Glucose (Misc Panel) 182 369 286 83-110 MG/DL Assessment/Plan Date Seen The patient was seen on 07/01/20. Patient Summary This is a 70 y/o M POD1 s/p TURBT, admitted o/n for postop hypoxia. He is doing well this am. His O2 sat was stable o/n on CPAP and now stable in RA this morning. Plan/VTE VTE Prophylaxis Ordered?: Yes VTE Exclusion Mechanical Proph: N/A:VTE Prophy Ordered Plan - discharge home w/ catheter - patient will f/u next wk for pathology results and catheter removal YADIEL PIZARRO MD July 01, 2020 07:40
[2020-07-01] MEDS ORDERED: FUROSEMIDE 40 MG TAB PO SCH (09:00)
== END 2020-07-01 10:50 | disposition home or self-care (01) ==
LOC: M SDC 13:30 → M MS5PR 20:20 → M SDC 07-01 10:50
PROVIDERS: ATTEND Urology
DX: C67.9 Malignant neoplasm of bladder, unspecified (principal); R09.02 Hypoxemia; Z85.46 Personal history of malignant neoplasm of prostate; Z90.79 Acquired absence of other genital organ(s); I10 Essential (primary) hypertension; Z95.0 Presence of cardiac pacemaker; E78.00 Pure hypercholesterolemia, unspecified; E11.9 Type 2 diabetes mellitus without complications; G47.30 Sleep apnea, unspecified; F17.290 Nicotine dependence, other tobacco product, uncomplicated; Z79.899 Other long term (current) drug therapy; Z79.01 Long term (current) use of anticoagulants; Z79.84 Long term (current) use of oral hypoglycemic drugs
CPT/HCPCS: 52240; 88305; C1769; C2617; J0131; J0690; J1100; J2250; J2405; J3010; Q9961

== ENCOUNTER → 2020-07-26 | Outpatient (CLI) | payer OTHER ==
[~2020-07-26] MED LIST changes: -ceFAZolin SOD 2 GM in IV 1 EA IV ONE
== END ==
LOC: M LABSMTC 09:07
PROVIDERS: ATTEND Anesthesiology
DX: Z01.818 Encounter for other preprocedural examination (principal); Z11.52 Encounter for screening for COVID-19

== ENCOUNTER 2020-07-31 06:05 | Day surgery (SDC) | payer OTHER ==
[~2020-07-31] VITALS: Ht 180.3 cm; Wt 109.8 kg
[~2020-07-31 06:05] MED LIST changes: +LIDOCAINE 1% MDV 20ML VIAL SQ PRN; +LevoFLOXacin IV 500 MG in IV 1 EA IV ONE
[2020-07-31] MEDS ORDERED: dexameTHASONE 4 MG/ML 1ML VIAL (J1100 PER 1MG) As Ordered ONE (07:27)
[2020-07-31] MEDS ORDERED: ONDANSETRON 4MG/2ML VIAL As Ordered ONE (07:27)
[2020-07-31] MEDS ORDERED: propofoL 200 MG/20 ML VIAL As Ordered ONE (07:27)
[2020-07-31] MEDS ORDERED: fentaNYL 100 MCG/2 ML INJECTION (J3010) As Ordered ONE ×3 (07:27→09:48)
[2020-07-31] MEDS ORDERED: LIDOCAINE 2% 100MG/5ML SDV (FOR ANES.) As Ordered ONE (07:27)
[2020-07-31] MEDS ORDERED: ROCURONIUM BROMIDE 50 MG/5 ML VIAL As Ordered ONE (07:27)
[2020-07-31] MEDS ORDERED: MIDAZOLAM INJ 2MG/2ML VIAL (J2250 PER 1MG) As Ordered ONE ×2 (07:28→09:52)
[2020-07-31] MEDS ORDERED: LR 1,000 ML IV ONE (07:30)
[2020-07-31] MEDS ORDERED: SUGAMMADEX SODIUM 500 MG/5 ML VIAL (BRIDION) As Ordered ONE (08:30)
[2020-07-31] MEDS ORDERED: CONRAY-60 60% 50ML VIAL (Q9961) As Ordered ONE (08:47)
--- NOTE | 2020-07-31 09:20 | REP ---
INDICATION: STENT PLACEMENT. COMPARISON: None. TECHNIQUE: Intraoperative fluoroscopic imaging using C-arm technique FINDINGS: Right ureteral stent placed in satisfactory position. Total fluoroscopic time 9 seconds. IMPRESSION: Status post right ureteral stent placement. <Electronically signed by John Mcintyre > 07/31/20 0917
--- NOTE | 2020-07-31 09:52 | RO ---
OPERATIVE NOTE DATE OF OPERATION: 07/31/2020 PREOPERATIVE DIAGNOSIS: Bladder cancer. POSTOPERATIVE DIAGNOSIS: Bladder cancer. PROCEDURE: Cystoscopy, transurethral resection of bladder tumor (greater than 5 cm), right retrograde pyelogram with intraoperative interpretation of images, right ureteral stent placement. SURGEON: Sandro Brennan MD SEROLOGY TEACHER: None. ANESTHESIA: General. OPERATIVE INDICATIONS: This is a 70-year-old male who was brought to the operating room approximately one month ago for transurethral resection of bladder tumor. He was diagnosed with non-muscle invasive high grade bladder cancer. Given the extensive resection and his grade and stage it was recommended that he be brought back for a restaging transurethral resection of bladder tumor today. DESCRIPTION OF PROCEDURE: The patient was brought to the operating room and general anesthesia was induced. Prophylactic antibiotics were infused. He was placed in the dorsal lithotomy position and prepped and draped in usual sterile fashion. A resectoscope was inserted in the urethral meatus and advanced into the bladder using the visual obturator. The bladder was then thoroughly examined and of note no new bladder tumors were seen. There was some scar tissue from the previous resection. This was removed to be sent with the specimen. At this point I resected at the base of all the previous resection areas making sure to resect down to the muscle layer. There were approximately 3 or 4 large areas. All this tissue was then removed using a Uro-Vac evacuator. Every area that was resected was cauterized using coagulation current. Of note, I did have to resect near the right ureteral orifice. At the end of the procedure I observed the right ureteral orifice for several minutes and it did not efflux any urine while the left one did constantly. Given concern for some obstruction to that ureter I did decide to place a stent. A 5-[place] open-ended ureteral catheter was advanced up the right collecting system and retrograde pyelogram was performed. It was negative for hydronephrosis or filling defects. I advanced guidewire up the right collecting system and then removed the ureteral catheter. I utilized guidewire to advance 7-[place] x 22-32 cm JJ ureteral stent up the right collecting system. The wire was removed and there were adequate curls of the stent in the right kidney and in the bladder. At this point I examined the bladder again and confirmed there were no other tumors and there was no bleeding. Once this was confirmed the resectoscope was removed and an 18-[place] Bhatia catheter was inserted into the bladder. The balloon was filled with 10 mL of sterile water and the catheter was connected to gravity drainage. This marked the conclusion of the procedure. The patient was taken out of dorsal lithotomy position, awakened from anesthesia and transported to the recovery room in stable condition. ESTIMATED BLOOD LOSS: 5 mL. COMPLICATIONS: None. SPECIMEN: Resection of bladder tumor base. PLAN: The patient will follow up in urology clinic next week for catheter removal and discuss the pathology results. I will take the stent out in approximately 4 weeks. ANNE MARIE
[2020-07-31] MEDS ORDERED: ONDANSETRON 4MG/2ML VIAL IV PRN (10:10)
[2020-07-31] MEDS ORDERED: MEPERIDINE INJ 25 MG/ML VIAL (J2175) IV PRN (10:10)
[2020-07-31] MEDS ORDERED: PERCOCET 5MG/325MG TAB PO PRN (10:10)
[2020-07-31] MEDS ORDERED: fentaNYL 100 MCG/2 ML INJECTION (J3010) IV PRN (10:15)
[2020-07-31] MEDS ORDERED: ACETAMINOPHEN TAB 650MG DOSE (2X325MG) PO PRN (10:15)
[2020-07-31] MEDS ORDERED: oxyBUTYnin 5 MG TAB PO PRN (10:15)
[2020-07-31] MEDS ORDERED: MIDAZOLAM INJ 2MG/2ML VIAL (J2250 PER 1MG) IV ONE (10:20)
[2020-07-31] MEDS ORDERED: PILL CUTTER 1 EACH XX ONE (12:01)
[2020-07-31] MEDS ORDERED: OXYB5TAB10 PO (12:38)
[2020-07-31] MEDS ORDERED: BELLADONNA 16.2mg/OPIUM 60mg 1 EA SUPP PR ONE (12:45)
[2020-07-31 13:10] VITALS: BP 112/56
== END 2020-07-31 13:10 | disposition home or self-care (01) ==
LOC: M SDC 06:05
PROVIDERS: ATTEND Urology
DX: C67.9 Malignant neoplasm of bladder, unspecified (principal); I10 Essential (primary) hypertension; E11.9 Type 2 diabetes mellitus without complications; Z85.46 Personal history of malignant neoplasm of prostate; I48.91 Unspecified atrial fibrillation; Z95.0 Presence of cardiac pacemaker; Z79.01 Long term (current) use of anticoagulants; F17.218 Nicotine dependence, cigarettes, with other nicotine-induced disorders; G47.33 Obstructive sleep apnea (adult) (pediatric); Z79.82 Long term (current) use of aspirin; Z79.899 Other long term (current) drug therapy
CPT/HCPCS: 52240; 52332; 74420; 88305; C1769; C2617; J1100; J1956; J2250; J2405; J3010; Q9961

== ENCOUNTER → 2020-12-09 | Outpatient (REF) | payer OTHER ==
[~2020-12-09] MED LIST changes: -LIDOCAINE 1% MDV 20ML VIAL SQ PRN; -LevoFLOXacin IV 500 MG in IV 1 EA IV ONE; +OXYB5TAB10 PO
== END ==
LOC: M SMT 14:22
PROVIDERS: ATTEND Urology
DX: C67.9 Malignant neoplasm of bladder, unspecified (principal)

== ENCOUNTER → 2021-02-25 | Outpatient (CLI) | payer OTHER ==
[~2021-02-25] MED LIST changes: +FARX1TAB3 PO
== END ==
LOC: M LABSMTC 11:38
PROVIDERS: ATTEND Anesthesiology
DX: Z01.812 Encounter for preprocedural laboratory examination (principal)

== ENCOUNTER 2021-03-02 13:27 | Day surgery (SDC) | payer OTHER ==
[~2021-03-02] VITALS: Ht 177.8 cm; Wt 111.9 kg
[~2021-03-02 13:27] MED LIST changes: +BACITRACIN OINTMENT 30GM TUBE As Ordered ONE; +LIDOCAINE 1% MDV 20ML VIAL SQ PRN; +LIDOCAINE 1% SDV 30ML VIAL As Ordered ONE; +LR 1,000 ML IV ONE; +MIDAZOLAM INJ 2MG/2ML VIAL (J2250 PER 1MG) As Ordered ONE; +ceFAZolin SOD 2 GM in IV 1 EA IV ONE; +fentaNYL 100 MCG/2 ML INJECTION (J3010) As Ordered ONE; +propofoL 200 MG/20 ML VIAL As Ordered ONE
[2021-03-02] MEDS ORDERED: HumaLOG INSULIN (NovoLOG) PER UNIT SC ONE ×2 (14:10→14:20)
[2021-03-02] MEDS ORDERED: propofoL 200 MG/20 ML VIAL As Ordered ONE (15:10)
[2021-03-02 16:45] VITALS: BP 164/73
--- NOTE | 2021-03-02 20:54 | RO ---
OPERATIVE NOTE DATE OF OPERATION: 03/02/2021 PREOPERATIVE DIAGNOSIS: Pacemaker battery depletion. POSTOPERATIVE DIAGNOSIS: Pacemaker battery depletion. FINDINGS: Pacemaker battery depletion. PROCEDURE PERFORMED: Explantation of old dual-chamber pacemaker pulse generator and implantation of new dual-chamber pacemaker pulse generator. SURGEON: Thang Rodrigues M.D. COLD MOLDING PRESS OPERATOR: None. ANESTHESIA: Lidocaine 1% local/monitored anesthetic care. SPECIMENS: Old [employer] pacemaker pulse generator (dual-chamber). ESTIMATED BLOOD LOSS: Less than 3 mL. BLOOD PRODUCTS REPLACED: None. DRAINS: None. COMPLICATIONS: None. PROCEDURE DESCRIPTION: Patient was prepped and draped over the left pectoral region. 3M [place] film was applied. Lidocaine 1% was used for local anesthetic. An incision was made with a PEAK PlasmaBlade along the existing pacemaker incision scar. The PEAK PlasmaBlade was used to get through the fatty layer and through the anterior capsule overlying the pacemaker pulse generator. The tie-down suture holding the pacemaker pulse generator was cut. The pacemaker pulse generator was then removed from the pocket and the terminal pins were removed after loosening the set screws. The existing terminal pins of the atrial and ventricular leads were plugged into their respective ports in the new pacemaker pulse generator header and each one was secured by tightening the set screws. A pull test was applied to each lead to demonstrate it was secure. A medium sized TYRX Anturistronic antimicrobial envelope was cut into four pieces and placed in the pacemaker pocket. The pacemaker pulse generator was placed into the pacemaker pocket. The device was tested in the pocket through the device. The ventricular lead was found to be satisfactory for a chronic lead. The deep layer was closed using individual sutures consisting of 2-0 Vicryl. Some additional 3-0 Vicryl sutures were used to help approximate the more superficial layer. The skin was then approximated using a continuous suture consisting of 4-0 Biosyn with the free ends protruding through the skin 1 cm from either end of the incision line. Prineo was used to then do the final closure over the incision and the Biosyn suture was snipped at the level of the skin on both sides. The existing pacemaker pulse generator was a [employer] Accent DR RF model 2210 with serial number [id number]. The new pacemaker pulse generator implanted was a [employer] MRI model YG3930 with serial number [id number]. The existing right atrial lead was a [employer], mode 2088 with serial number [id number]. Testing of the right atrial lead through the pulse analyzer showed atrial fibrillation waves of 1.4 millivolts and lead impedance of 410 ohms. The existing right ventricular lead was a [employer] model 2088 with serial number [id number]. The lead was programmed to unipolar because prior to operating, it was known or at least suspected that there was an insulation break between the center coil and the outer coil. It was programmed to a unipolar tip. In this configuration, the capture threshold for the right ventricle was 0.5 volts and 0.4 milliseconds with lead impedance of 250 ohms and R wave amplitude of 6.8 millivolts.
== END 2021-03-02 17:00 | disposition home or self-care (01) ==
LOC: M SDC 13:27
PROVIDERS: ATTEND Internal Medicine Cardiovascular Disease
DX: Z45.010 Encounter for checking and testing of cardiac pacemaker pulse generator [battery] (principal); I48.91 Unspecified atrial fibrillation; I12.9 Hypertensive chronic kidney disease with stage 1 through stage 4 chronic kidney disease, or unspecified chronic kidney disease; E78.5 Hyperlipidemia, unspecified; E11.22 Type 2 diabetes mellitus with diabetic chronic kidney disease; E03.9 Hypothyroidism, unspecified; I08.9 Rheumatic multiple valve disease, unspecified; G47.30 Sleep apnea, unspecified; Z85.3 Personal history of malignant neoplasm of breast; N18.30 Chronic kidney disease, stage 3 unspecified; Z85.46 Personal history of malignant neoplasm of prostate; Z79.899 Other long term (current) drug therapy; Z79.82 Long term (current) use of aspirin; Z79.01 Long term (current) use of anticoagulants; Z79.84 Long term (current) use of oral hypoglycemic drugs; F17.210 Nicotine dependence, cigarettes, uncomplicated
CPT/HCPCS: 33228; C1785; J0690; J2250; J3010

== ENCOUNTER → 2021-06-26 | Outpatient (REF) | payer OTHER ==
[~2021-06-26] MED LIST changes: -BACITRACIN OINTMENT 30GM TUBE As Ordered ONE; -LIDOCAINE 1% MDV 20ML VIAL SQ PRN; -LIDOCAINE 1% SDV 30ML VIAL As Ordered ONE; -LR 1,000 ML IV ONE; -MIDAZOLAM INJ 2MG/2ML VIAL (J2250 PER 1MG) As Ordered ONE; -ceFAZolin SOD 2 GM in IV 1 EA IV ONE; -fentaNYL 100 MCG/2 ML INJECTION (J3010) As Ordered ONE; -propofoL 200 MG/20 ML VIAL As Ordered ONE
== END ==
LOC: M SMT 17:08
PROVIDERS: ATTEND Urology
DX: C67.9 Malignant neoplasm of bladder, unspecified (principal)

== ENCOUNTER → 2021-09-28 | Outpatient (REF) | payer MEDICARE, OTHER | LOC: M SMT 13:30 | PROVIDERS: ATTEND Urology | DX: C67.9 Malignant neoplasm of bladder, unspecified (principal) ==

== ENCOUNTER → 2021-12-28 | Outpatient (CLI) | payer OTHER | LOC: M RAD 08:20 | PROVIDERS: ATTEND Orthopaedic Surgery | DX: Z47.1 Aftercare following joint replacement surgery (principal) ==

== ENCOUNTER → 2022-01-08 | Outpatient (REF) | payer MEDICARE, OTHER | LOC: M SMT 17:04 | PROVIDERS: ATTEND Urology | DX: C67.9 Malignant neoplasm of bladder, unspecified (principal) ==

== ENCOUNTER → 2022-05-03 | Outpatient (REF) | payer MEDICARE, OTHER | LOC: M SMT 17:21 | PROVIDERS: ATTEND Urology | DX: C67.9 Malignant neoplasm of bladder, unspecified (principal); C61 Malignant neoplasm of prostate; F17.200 Nicotine dependence, unspecified, uncomplicated | CPT/HCPCS: 52000; 88108; G0463 ==

== ENCOUNTER → 2022-11-09 | Outpatient (REF) | payer MEDICARE, OTHER ==
[~2022-11-09] MED LIST changes: +ATEN50TA2 PO
== END ==
LOC: M SMT 13:29
PROVIDERS: ATTEND Urology
DX: C67.9 Malignant neoplasm of bladder, unspecified (principal)

== ENCOUNTER → 2023-05-09 | Outpatient (REF) | payer MEDICARE, OTHER ==
[~2023-05-09] MED LIST changes: +GLIP5TAB17 PO; -GLIP5TAB8 PO; -OXYB5TAB10 PO; +OXYB5TAB14 PO
== END ==
LOC: M SMT 13:07
PROVIDERS: ATTEND Urology
DX: C67.9 Malignant neoplasm of bladder, unspecified (principal)

== ENCOUNTER → 2023-06-27 | Outpatient (REF) | payer MEDICARE, OTHER | LOC: M LAB REF 16:27 | PROVIDERS: ATTEND Nurse Practitioner Adult Health | DX: I48.20 Chronic atrial fibrillation, unspecified (principal) ==

== ENCOUNTER 2023-08-10 06:43 | Day surgery (SDC) | payer MEDICARE, OTHER ==
[~2023-08-10] VITALS: Ht 180.3 cm; Wt 97.1 kg
[2023-08-10] MEDS: NS 1,000 ML IV ONE (07:23)
[2023-08-10 09:02] VITALS: TEMP 98.3
[2023-08-10 09:30] VITALS: BP 167/70; O2SAT 95
== END 2023-08-10 09:31 | disposition home or self-care (01) ==
LOC: M OPP 06:43
PROVIDERS: ATTEND Internal Medicine Gastroenterology
DX: Z12.11 Encounter for screening for malignant neoplasm of colon (principal); Z86.010 Personal history of colon polyps; D12.6 Benign neoplasm of colon, unspecified; K64.0 First degree hemorrhoids; K57.30 Diverticulosis of large intestine without perforation or abscess without bleeding; I48.91 Unspecified atrial fibrillation; E11.9 Type 2 diabetes mellitus without complications; I10 Essential (primary) hypertension; F17.290 Nicotine dependence, other tobacco product, uncomplicated; Z79.01 Long term (current) use of anticoagulants; Z79.02 Long term (current) use of antithrombotics/antiplatelets; Z79.82 Long term (current) use of aspirin; Z79.84 Long term (current) use of oral hypoglycemic drugs; Z79.899 Other long term (current) drug therapy

== ENCOUNTER 2023-08-31 18:16 | Observation (INO) | payer MEDICARE, OTHER ==
[~2023-08-31] VITALS: Ht 180.3 cm; Wt 98.2 kg
[2023-08-31 19:03] LABS: BASO # 0.1 10^3/uL (0.0-0.2); BASO % 0.5 % (0.0-1.0); EOS # 0.2 10^3/uL (0.0-0.5); EOS % 2.3 % (0.0-3.0); HEMATOCRIT 41.2 % (42.0-52.0); HEMOGLOBIN 13.6 g/dl (13.5-17.5); LYMPH # 1.1 10^3/uL (1.5-5.0); LYMPH % 10.8 % (24.0-44.0); MEAN CORPUSCULAR HEMOGLOBIN 29.1 pg (27.0-33.0); MEAN CORPUSCULAR VOLUME 88.2 fl (80.0-96.0); MONO # 0.8 10^3/uL (0.0-0.8); MONO % 7.2 % (2.0-8.0); NEUTROPHILS # 8.3 10^3/uL (1.5-8.5); NEUTROPHILS % 78.9 % (36.0-66.0); PLATELET COUNT, AUTOMATED 181 10^3/uL (150-450); RED BLOOD COUNT 4.67 10^6/uL (4.30-6.10); WHITE BLOOD COUNT 10.6 10^3/uL (4.0-10.0)
[2023-08-31 19:28] LABS: CALCIUM LEVEL 9.2 MG/DL (8.3-10.6); CREATININE FOR GFR 1.57 MG/DL (0.70-1.30); GLOMERULAR FILTRATION RATE 46.1 (>42); POTASSIUM SERUM 4.1 MMOL/L (3.5-5.1)
[2023-08-31] MEDS ORDERED: ISOVUE-370 76% 100ML VIAL As Ordered ONE (20:38)
[2023-08-31 21:43] LABS: ALBUMIN 3.5 G/DL (3.2-5.2); BILIRUBIN,DIRECT 0.2 MG/DL (<0.4); BILIRUBIN,TOTAL 0.6 MG/DL (0.3-1.2); TOTAL PROTEIN 6.7 G/DL (5.7-8.2)
[2023-08-31 22:29] LABS: INR 1.24; PARTIAL THROMBOPLASTIN TIME 39.4 SECONDS (24.8-34.2); PROTHROMBIN TIME 15.2 SECONDS (12.5-14.5)
[2023-09-01] VITALS (7 sets, daily range): BP systolic 105–163; BP diastolic 49–78; TEMP 97–97.8; O2SAT 93–96
[2023-09-01] MEDS ORDERED: GLUCOSE 4 GM CHEW PO PRN (00:35)
[2023-09-01] MEDS ORDERED: DEXTROSE 50% 50ML SYRINGE IV PRN (00:35)
[2023-09-01] MEDS ORDERED: GLUCAGON INJ 1MG VIAL SC PRN (00:35)
[2023-09-01] MEDS ORDERED: MOM 30ML SUSPENSION UDC PO PRN (00:35)
[2023-09-01] MEDS ORDERED: FURO40TA2 PO (01:05)
[2023-09-01] MEDS ORDERED: GLIP5TAB17 PO (01:05)
[2023-09-01] MEDS ORDERED: HOME MED LIST COMPLETE! XX SCH (01:10)
[2023-09-01 03:48] LABS: HEMATOCRIT 37.8 % (42.0-52.0); HEMOGLOBIN 12.6 g/dl (13.5-17.5); MEAN CORPUSCULAR HEMOGLOBIN 29.6 pg (27.0-33.0); MEAN CORPUSCULAR HGB CONC 33.3 g/dl (32.0-36.5); MEAN CORPUSCULAR VOLUME 88.7 fl (80.0-96.0); PLATELET COUNT, AUTOMATED 143 10^3/uL (150-450); RED BLOOD COUNT 4.26 10^6/uL (4.30-6.10); WHITE BLOOD COUNT 8.2 10^3/uL (4.0-10.0)
[2023-09-01 04:16] LABS: CALCIUM LEVEL 8.8 MG/DL (8.3-10.6); CREATININE FOR GFR 1.5 MG/DL (0.70-1.30); GLOMERULAR FILTRATION RATE 48.6 (>42); POTASSIUM SERUM 3.9 MMOL/L (3.5-5.1)
[2023-09-01] MEDS: PANTOPRAZOLE 40MG VIAL IV SCH (08:58)
[2023-09-01] MEDS: DIGOXIN 0.25 MG TAB PO SCH (08:59)
[2023-09-01] MEDS: FUROSEMIDE 80 MG TAB PO SCH (08:59)
[2023-09-01] MEDS: INSULIN LISPRO (NovoLOG) PER UNIT SC SCH ×2 (09:00→21:00)
[2023-09-01 09:16] LABS: HEMATOCRIT 39.6 % (42.0-52.0); HEMOGLOBIN 12.9 g/dl (13.5-17.5)
[2023-09-01 15:29] LABS: HEMATOCRIT 35.6 % (42.0-52.0); HEMOGLOBIN 11.9 g/dl (13.5-17.5)
[2023-09-01] MEDS: FUROSEMIDE 40 MG TAB PO SCH (20:21)
[2023-09-01] MEDS: ATORVASTATIN 20 MG TAB PO SCH (20:22)
[2023-09-01] MEDS: atenoloL 50 MG TAB PO SCH (21:00)
[2023-09-01 21:12] LABS: HEMATOCRIT 38.2 % (42.0-52.0); HEMOGLOBIN 12.5 g/dl (13.5-17.5)
[2023-09-02 03:21] LABS: HEMATOCRIT 36.3 % (42.0-52.0)
[2023-09-02 03:56] VITALS: BP 138/80; TEMP 97; O2SAT 93
[2023-09-02 07:59] VITALS: BP 136/82; TEMP 97.3; O2SAT 96
[2023-09-02 09:23] LABS: HEMATOCRIT 37.3 % (42.0-52.0)
[2023-09-02 11:37] VITALS: BP 140/82; TEMP 97.3; O2SAT 96
[2023-09-02 15:09] LABS: HEMATOCRIT 38.1 % (42.0-52.0); HEMOGLOBIN 12.7 g/dl (13.5-17.5)
[2023-09-02 15:54] VITALS: BP 138/80; TEMP 97.8; O2SAT 95
[2023-09-02] MEDS: LEVEMIR (INSULIN DETEMIR) 1 UNITS/0.01ML SC SCH (21:10)
[2023-09-02 21:12] VITALS: BP 142/70
[2023-09-02 21:16] LABS: HEMATOCRIT 36.1 % (42.0-52.0)
[2023-09-02 23:31] VITALS: BP 140/60; TEMP 97; O2SAT 96
[2023-09-03 03:13] LABS: HEMATOCRIT 34.5 % (42.0-52.0); HEMOGLOBIN 11.4 g/dl (13.5-17.5)
[2023-09-03 03:26] VITALS: BP 157/68; TEMP 97; O2SAT 96
[2023-09-03 05:29] LABS: BASO % 0.4 % (0.0-1.0); EOS # 0.2 10^3/uL (0.0-0.5); EOS % 2.8 % (0.0-3.0); HEMATOCRIT 35.7 % (42.0-52.0); HEMOGLOBIN 11.8 g/dl (13.5-17.5); LYMPH # 0.9 10^3/uL (1.5-5.0); LYMPH % 10.6 % (24.0-44.0); MEAN CORPUSCULAR HEMOGLOBIN 29.4 pg (27.0-33.0); MEAN CORPUSCULAR HGB CONC 33.1 g/dl (32.0-36.5); MONO # 0.7 10^3/uL (0.0-0.8); MONO % 9.3 % (2.0-8.0); NEUTROPHILS # 6.1 10^3/uL (1.5-8.5); NEUTROPHILS % 76.6 % (36.0-66.0); PLATELET COUNT, AUTOMATED 132 10^3/uL (150-450); RED BLOOD COUNT 4.01 10^6/uL (4.30-6.10)
[2023-09-03 05:49] LABS: CALCIUM LEVEL 8.2 MG/DL (8.3-10.6); CREATININE FOR GFR 1.46 MG/DL (0.70-1.30); GLOMERULAR FILTRATION RATE 50.1 (>42); MAGNESIUM LEVEL 2.1 MG/DL (1.8-2.4); POTASSIUM SERUM 3.6 MMOL/L (3.5-5.1)
[2023-09-03 07:52] VITALS: BP 158/78; TEMP 98.1; O2SAT 100
[2023-09-03 09:53] LABS: HEMATOCRIT 37.2 % (42.0-52.0); HEMOGLOBIN 12.3 g/dl (13.5-17.5)
[2023-09-03] MEDS ORDERED: PANT40TA29 PO (11:28)
[2023-09-03 11:37] VITALS: BP 144/62; TEMP 98; O2SAT 100
== END 2023-09-03 12:04 | disposition home or self-care (01) ==
LOC: M ED 18:16 → M ED INP 23:57 → INTOOBSV 23:57 → M PCU 09-01 01:50
PROVIDERS: ADMIT Family Medicine; ATTEND Family Medicine
DX: K92.2 Gastrointestinal hemorrhage, unspecified (principal); I48.20 Chronic atrial fibrillation, unspecified; I12.9 Hypertensive chronic kidney disease with stage 1 through stage 4 chronic kidney disease, or unspecified chronic kidney disease; E11.22 Type 2 diabetes mellitus with diabetic chronic kidney disease; E78.5 Hyperlipidemia, unspecified; N18.9 Chronic kidney disease, unspecified; C61 Malignant neoplasm of prostate; C67.9 Malignant neoplasm of bladder, unspecified; F17.200 Nicotine dependence, unspecified, uncomplicated; K57.90 Diverticulosis of intestine, part unspecified, without perforation or abscess without bleeding; K80.20 Calculus of gallbladder without cholecystitis without obstruction; N20.0 Calculus of kidney; K40.30 Unilateral inguinal hernia, with obstruction, without gangrene, not specified as recurrent; I77.4 Celiac artery compression syndrome; Z96.651 Presence of right artificial knee joint; Z98.890 Other specified postprocedural states; Z79.899 Other long term (current) drug therapy; Z79.01 Long term (current) use of anticoagulants; Z79.84 Long term (current) use of oral hypoglycemic drugs; Z95.0 Presence of cardiac pacemaker
CPT/HCPCS: 36415; 74177; 80048; 80076; 80162; 83735; 85014; 85018; 85025; 85027; 85610; 85730; 86850; 86900; 86901; 96374; 96376; 99284; G0378; J1815; J2470; Q9967

== ENCOUNTER → 2023-09-19 | Outpatient (CLI) | payer MEDICARE, OTHER ==
[~2023-09-19] MED LIST changes: +PANT40TA29 PO
== END ==
LOC: M RAD 09:38
PROVIDERS: ATTEND Internal Medicine Pulmonary Disease
DX: F17.218 Nicotine dependence, cigarettes, with other nicotine-induced disorders (principal)

== ENCOUNTER → 2023-11-14 | Outpatient (REF) | payer MEDICARE, OTHER | LOC: M SMT 12:43 | PROVIDERS: ATTEND Urology | DX: C67.9 Malignant neoplasm of bladder, unspecified (principal) ==

== ENCOUNTER → 2024-05-24 | Outpatient (REF) | payer MEDICARE, OTHER | LOC: M LAB REF 17:36 | PROVIDERS: ATTEND Nurse Practitioner Adult Health | DX: I10 Essential (primary) hypertension (principal); I48.20 Chronic atrial fibrillation, unspecified ==

== ENCOUNTER → 2024-06-11 | Outpatient (REF) | payer MEDICARE, OTHER | LOC: M SMT 13:39 | PROVIDERS: ATTEND Urology | DX: C67.9 Malignant neoplasm of bladder, unspecified (principal) ==

== ENCOUNTER → 2024-09-20 | Outpatient (REF) | payer MEDICARE, OTHER ==
[~2024-09-20] MED LIST changes: +LISI40TA10 PO; -LISI40TA4 PO
== END ==
LOC: M LAB REF 14:08
PROVIDERS: ATTEND Nurse Practitioner Adult Health
DX: I10 Essential (primary) hypertension (principal); I48.20 Chronic atrial fibrillation, unspecified

== ENCOUNTER 2024-10-08 06:27 | Day surgery (SDC) | payer MEDICARE, OTHER ==
[~2024-10-08] VITALS: Ht 180.3 cm; Wt 89.4 kg
[~2024-10-08 06:27] MED LIST changes: +POTA-149 PO
[2024-10-08] MEDS ORDERED: LIDOCAINE 2% 100 MG/5 ML SDV (FOR ANES.) As Ordered ONE (07:38)
[2024-10-08 08:25] VITALS: TEMP 97.1
[2024-10-08 08:42] VITALS: BP 160/70; O2SAT 97
== END 2024-10-08 08:47 | disposition home or self-care (01) ==
LOC: M OPP 06:27
PROVIDERS: ATTEND Internal Medicine Gastroenterology
DX: D12.6 Benign neoplasm of colon, unspecified (principal); K57.30 Diverticulosis of large intestine without perforation or abscess without bleeding; K64.0 First degree hemorrhoids; Z86.0100 Personal history of colon polyps, unspecified; G47.30 Sleep apnea, unspecified; Z95.0 Presence of cardiac pacemaker; Z79.01 Long term (current) use of anticoagulants; Z79.84 Long term (current) use of oral hypoglycemic drugs; Z79.899 Other long term (current) drug therapy; F17.210 Nicotine dependence, cigarettes, uncomplicated

== ENCOUNTER 2025-01-16 11:10 | Day surgery (SDC) | payer MEDICARE, OTHER ==
[~2025-01-16] VITALS: Ht 177.8 cm; Wt 91.4 kg
[2025-01-16] MEDS ORDERED: IPRATROPIUM 0.5 MG/ALBUTEROL 2.5 MG INH SOL UD 3 ML NEB ONE (11:45)
[2025-01-16] MEDS ORDERED: LIDOCAINE 2% 100 MG/5 ML SDV (FOR ANES.) As Ordered ONE (12:40)
[2025-01-16] MEDS ORDERED: ONDANSETRON 4MG/2ML VIAL As Ordered ONE (12:40)
[2025-01-16] MEDS ORDERED: ROCURONIUM BROMIDE 50MG/5ML VIAL As Ordered ONE (12:40)
[2025-01-16] MEDS ORDERED: dexAMETHasone 4 MG/ML 1 ML VIAL As Ordered ONE (12:40)
[2025-01-16] MEDS ORDERED: MIDAZOLAM INJ 2 MG/2 ML VIAL As Ordered ONE (12:41)
[2025-01-16] MEDS: ceFAZolin SOD 2 GM IV ONCE IV ONE (13:12)
[2025-01-16] MEDS ORDERED: dexmedeTOMIDine (4 MCG/ML) 200 MCG/50 ML BTL As Ordered ONE (13:15)
[2025-01-16] MEDS ORDERED: METOPROLOL 5 MG/5 ML VIAL As Ordered ONE (13:29)
[2025-01-16] MEDS ORDERED: ACETAMINOPHEN 1000MG/100ML IV BAG As Ordered ONE (13:47)
[2025-01-16] MEDS ORDERED: SUGAMMADEX SODIUM 200 MG/2 ML VIAL As Ordered ONE (13:47)
[2025-01-16] MEDS ORDERED: HYDROmorphone HCL 2 MG/ML 1 ML VIAL As Ordered ONE (14:04)
[2025-01-16] MEDS ORDERED: ONDANSETRON 4MG/2ML VIAL IV PRN (14:50)
[2025-01-16] MEDS ORDERED: LR 1,000 ML IV SCH (14:50)
[2025-01-16] MEDS ORDERED: HYDROMORPHONE HCL 0.5 MG/0.5 ML SYRINGE IV PRN (14:50)
[2025-01-16 17:20] VITALS: BP 150/76; TEMP 98.4; O2SAT 95
== END 2025-01-16 17:30 | disposition home or self-care (01) ==
LOC: M SDC 11:10
PROVIDERS: ATTEND Surgery
DX: K40.90 Unilateral inguinal hernia, without obstruction or gangrene, not specified as recurrent (principal); K66.0 Peritoneal adhesions (postprocedural) (postinfection); I48.91 Unspecified atrial fibrillation; E11.9 Type 2 diabetes mellitus without complications; I10 Essential (primary) hypertension; N28.9 Disorder of kidney and ureter, unspecified; E78.00 Pure hypercholesterolemia, unspecified; Z85.51 Personal history of malignant neoplasm of bladder; Z85.46 Personal history of malignant neoplasm of prostate; Z95.0 Presence of cardiac pacemaker; G47.30 Sleep apnea, unspecified; F17.210 Nicotine dependence, cigarettes, uncomplicated; Z79.01 Long term (current) use of anticoagulants; Z79.4 Long term (current) use of insulin; Z79.899 Other long term (current) drug therapy; Z90.79 Acquired absence of other genital organ(s)
CPT/HCPCS: 49650; C1781; J0131; J0616; J0665; J0688; J1100; J1171; J2250; J2405; J3010